=== PATIENT | male | born 1980 | race Caucasian/White ===

== ENCOUNTER 2019-02-15 14:54 | Emergency (ER) | payer OTHER ==
[~2019-02-15] VITALS: Ht 154.9 cm; Wt 50.4 kg
[~2019-02-15 14:54] MED LIST: AZIT250 PO; CALCAVITDA PO; CALCIUM CARBONATE 600 MG; CALCNI; CARB100ER PO; CARB200; CARB200 PO; CEPH500 PO; CETI5 PO; Cefdinir250 MG/5 M PO; Colace250 MG PO; DESL5; DOCUSATE 250 MG; ERYT.5TO LEFTEYE; Flonase 0.05% N16 GM; HYDACE7.5L PO; LORA10 PO; LORA2 PO; LORTAB 10 MG-3473 ML PO; METO10; MONT10T PO; MULVITA; NEXIUM 40 MG; Omeprazole20 M1; SODCHL.65S; [UNRECOGNIZED DRUG - OTHER]; [UNRECOGNIZED DRUG - REMARK]
== END 2019-02-15 17:31 | disposition home or self-care (01) ==
LOC: ER 14:54
DX: S80.212A Abrasion, left knee, initial encounter (principal); Z88.5 Allergy status to narcotic agent; W18.30XA Fall on same level, unspecified, initial encounter
CPT/HCPCS: 99283

== ENCOUNTER 2021-04-26 13:37 | Emergency (ER) | payer OTHER ==
[~2021-04-26] VITALS: Ht 160 cm; Wt 49.9 kg
[2021-04-26] MEDS ORDERED: ACET325 PO (14:09)
[2021-04-26] MEDS ORDERED: ACETAMINOPHEN PR (14:11)
[2021-04-26] MEDS ORDERED: BISA10S PR (14:12)
[2021-04-26] MEDS ORDERED: CALMOSEPTINE OINT (14:14)
[2021-04-26] MEDS ORDERED: DIVA125 PO (14:15)
[2021-04-26] MEDS ORDERED: SODIUM PO (14:17)
[2021-04-26] MEDS ORDERED: Fleet Enema132 ML PR (14:19)
[2021-04-26] MEDS ORDERED: ERYT.5TO LEFTEYE (14:19)
[2021-04-26] MEDS ORDERED: HYDPAM50 PO (14:21)
[2021-04-26] MEDS ORDERED: IBUP400 PO (14:22)
[2021-04-26] MEDS ORDERED: MICONAZOLE NITRATE (14:25)
[2021-04-26] MEDS ORDERED: MILK OF MAGNESIA PO (14:27)
[2021-04-26 14:33] LABS: BASOPHILS ABSOLUTE AUTO 0.04 K/mm3 (0.00-0.23); BASOPHILS PERCENT AUTO 0 % (0-2); EOSINOPHILS ABSOLUTE AUTO 0.06 K/mm3 (0.00-0.68); EOSINOPHILS PERCENT AUTO 1 % (0-6); Hematocrit 47.7 % (37.0-53.0); Hemoglobin 15.8 g/dL (13.5-17.5); IMMATURE GRAN ABSOLUTE AUTO 0.01 K/mm3 (0.00-0.10); IMMATURE GRAN PERCENT AUTO 0 % (0-1); LYMPHOCYTES ABSOLUTE AUTO 2.56 K/mm3 (0.84-5.20); LYMPHOCYTES PERCENT AUTO 23 % (21-46); MONOCYTES ABSOLUTE AUTO 0.74 K/mm3 (0.16-1.47); MONOCYTES PERCENT AUTO 7 % (4-13); Mean Corpuscular HGB 29.6 pg (26.0-34.0); Mean Corpuscular HGB Conc 33.1 g/dL (31.5-36.5); Mean Corpuscular Volume 90 fL (80-100); Mean Platelet Volume 9.8 fL (9.1-12.4); NEUTROPHILS ABSOLUTE AUTO 7.86 K/mm3 (1.96-9.15); NEUTROPHILS PERCENT AUTO 70 % (41-73); Platelet Count 256 K/mm3 (150-400); RDW Coefficient Variation 12.9 % (11.7-14.2); RDW Standard Deviation 42.5 fL (35.1-46.3); Red Blood Cell Count 5.33 M/mm3 (4.30-5.90); White Blood Cell Count 11.27 K/mm3 (4.00-11.30)
[2021-04-26] MEDS ORDERED: VITAMIN PO (14:35)
[2021-04-26] MEDS ORDERED: [UNRECOGNIZED DRUG - OTHER] PO (14:35)
[2021-04-26] MEDS ORDERED: PROM12.5S PR (14:37)
[2021-04-26] MEDS ORDERED: [UNRECOGNIZED DRUG - OTHER] PO (14:38)
[2021-04-26] MEDS ORDERED: SUDOGEST PO (14:40)
[2021-04-26 14:46] LABS: Alanine Aminotransfer (ALT/SGP 34 U/L (12-78); Albumin, Blood 3.5 g/dL (3.4-5.0); Albumin/Globulin Ratio 0.7 (0.8-1.8); Alk Phos 93 U/L (50-136); Anion Gap 3 mmol/L (6-16); Aspartate Aminotrans (AST/SGOT 18 U/L (12-37); Bilirubin, Total 0.3 mg/dL (0.1-1.0); Blood Urea Nitrogen 19 mg/dL (8-24); Bun/Creatinine Ratio 38.5 (12.0-20.0); CO2, Blood 32 mmol/L (21-32); Calcium, Blood 8.6 mg/dL (8.5-10.1); Carbamazepine 7.2 ug/mL (4.0-12.0); Chloride, Blood 105 mmol/L (98-108); Creatinine, Blood 0.49 mg/dL (0.60-1.20); Globulin, Blood 4.9 g/dL (2.2-4.0); Glomerular Filtration Rate >60 (60-); Glucose, Blood 89 mg/dL (70-99); Potassium, Blood 3.8 mmol/L (3.5-5.5); Sodium, Blood 140 mmol/L (136-145); Total Protein, Blood 8.4 g/dL (6.4-8.2)
== END 2021-04-26 18:00 | disposition home or self-care (01) ==
LOC: ER 13:37
PROVIDERS: Emergency Medicine
DX: R56.9 Unspecified convulsions (principal); K21.9 Gastro-esophageal reflux disease without esophagitis; Z88.5 Allergy status to narcotic agent; Z79.899 Other long term (current) drug therapy
CPT/HCPCS: 36415; 70450; 80053; 80156; 80164; 82140; 84146; 85025; 93005; 93010; 99285-25; A9270

== ENCOUNTER 2022-10-29 12:59 | Emergency (ER) | payer OTHER ==
[~2022-10-29] VITALS: Ht 152.4 cm; Wt 49.9 kg
[~2022-10-29 12:59] MED LIST changes: +ACET325 PO; +ACETAMINOPHEN PR; +BISA10S PR; +CALMOSEPTINE OINT; +DIVA125 PO; +Fleet Enema132 ML PR; +HYDPAM50 PO; +IBUP400 PO; +MICONAZOLE NITRATE; +MILK OF MAGNESIA PO; +PROM12.5S PR; +SODIUM PO; +SUDOGEST PO; +VITAMIN PO; +[UNRECOGNIZED DRUG - OTHER] PO; +[UNRECOGNIZED DRUG - OTHER] PO
== END 2022-10-29 17:06 | disposition home or self-care (01) ==
LOC: ER 12:59
DX: S61.213A Laceration without foreign body of left middle finger without damage to nail, initial encounter (principal); G80.9 Cerebral palsy, unspecified; K21.9 Gastro-esophageal reflux disease without esophagitis; Z88.5 Allergy status to narcotic agent; Z91.018 Allergy to other foods; Z79.899 Other long term (current) drug therapy; X58.XXXA Exposure to other specified factors, initial encounter
CPT/HCPCS: 12002; 99282-25